=== PATIENT | female | born 1965 | race Caucasian/White ===

== ENCOUNTER → 2017-11-08 | Outpatient (CLI) | payer OTHER ==
--- NOTE | 2017-11-08 08:20 | US ---
EXAMINATION TYPE: US abdomen complete DATE OF EXAM: 11/08/2017 COMPARISON: NONE CLINICAL HISTORY: R10.12 left upper quadrant pain. Left flank pain, back pain and N/V x 1 month EXAM MEASUREMENTS: Liver Length: 15.7 cm Gallbladder Wall: 0.2 cm CBD: 0.3 cm Spleen: 9.7 cm Right Kidney: 11.8 x 4.6 x 5.3 cm Left Kidney: 10.3 x 4.9 x 5.4 cm Pancreas: visualized portions wnl, limited by overlying midline bowel gas Liver: 1.6 x 1.4cm hypoechoic area adjacent to gallbladder Gallbladder: wnl Evidence for sonographic Bradshaw's sign: no CBD: visualized portions wnl, limited by overlying bowel gas Spleen: wnl Right Kidney: 2.8 x 1.7 x 2.6cm isoechoic area mid pole, possible prominent column of John Left Kidney: 1.9 x 1.5 x 1.5cm isoechoic area mid pole, possible prominent column of John Upper IVC: wnl Abd Aorta: visualized portions wnl, limited by overlying midline bowel gas The visualized liver is heterogeneously hyperechoic likely reflecting fatty infiltration. Evaluation for focal masses is suboptimal due to the heterogeneity. Some focal fatty sparing near gallbladder is felt present. The intrahepatic portion of the IVC and proximal abdominal aorta are within normal li mits. There is no evidence of cholelithiasis. Common bile duct is unremarkable. The visualized por tions of the pancreas are homogenous. The spleen is unremarkable. Kidneys are symmetric and free of hydronephrosis. Technologist taylor prominent area isoechoic to cortex mid pole level in both kidneys felt to reflect lobulated cortical tissue. No obvious mass is present. IMPRESSION: Suboptimal study as detailed above, no suspicious acute finding is seen to account for pa tient's symptoms on images saved. Fatty infiltration of liver is noted.
== END | disposition home or self-care (01) ==
LOC: RADUSWWP 06:51
PROVIDERS: ATTEND Internal Medicine
DX: R10.12 Left upper quadrant pain (principal); Z88.8 Allergy status to other drugs, medicaments and biological substances
CPT/HCPCS: 76700

== ENCOUNTER → 2020-12-20 | Outpatient (CLI) | payer BC ==
[2020-12-20 13:47] VITALS: BP 132/71; PULSE 75; RESP 18; TEMP 98.6
--- NOTE | 2020-12-20 14:58 | P.HPOB ---
History of Present Illness H&P Date: 12/20/20 Chief Complaint: The patient is here for her routine gynecologic exam. This is a 55-year-old 014 with an LMP of 2015. The patient is here to establish with this office. The patient is without gynecologic complaints and denies any postmenopausal bleeding. It has been about 8 years since her last pelvic exam. Review of Systems The patient has gained 10 pounds over the last year. She states she lost about 40 pounds after she was diagnosed with diabetes about 4 years ago. She is now about at her original weight. She denies respiratory, cardiac, or G.I. problems. Past Medical History Past Medical History: Diabetes Mellitus, Liver Disease, Osteoarthritis (OA) Additional Past Medical History / Comment(s): Type 2 diabetes. Fatty liver. 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 History of Any Multi-Drug Resistant Organisms: None Reported Past Surgical History: Section, Tubal Ligation Additional Past Surgical History / Comment(s): D&C(molar ). One section followed by 3 vaginal deliveries. Past Psychological History: No Psychological Hx Reported Smoking Status: Current every day smoker (Half a pack per day.) Past Alcohol Use History: Occasional (1 about every 2 months) Past Drug Use History: Marijuana Additional Drug Use History / Comment(s): Marijuana use in the past. She denies recent use. Additional History: She has been since 1985 and is not sexually active. She does not work outside of the home. - Past Family History Sister(s) Family Medical History: Diabetes Mellitus Additional Family Medical History / Comment(s): Type 1 diabetes. Mother Family Medical History: Asthma, Osteoarthritis (OA) Father Family Medical History: Unable to Obtain Additional Family Medical History / Comment(s): Paternal grandmother had breast cancer. Medications and Allergies Home Medications Medication Instructions Recorded Confirmed Type Cyanocobalamin (Vitamin B-12) 1,000 mcg PO DAILY 12/20/20 12/20/20 History [Vitamin B-12] Glimepiride [Amaryl] 2 mg PO DAILY 12/20/20 12/20/20 History Melatonin 3 mg PO HS 12/20/20 12/20/20 History Meloxicam, Submicronized 5 mg PO DAILY 12/20/20 12/20/20 History [Meloxicam] Multivitamin [Multivitamins Adult 1 each PO DAILY 12/20/20 12/20/20 History Gummies] Allergies Allergy/AdvReac Type Severity Reaction Status Date / Time povidone-iodine AdvReac Swelling Unverified 12/20/20 13:42 [From Betadine] soap [From Betadine] AdvReac Swelling Unverified 12/20/20 13:42 Exam Vital Signs Temp Pulse Resp BP Pulse Ox 12/20/20 13:42 98.6 F 75 18 132/71 98 Intake and Output 12/19/20 12/20/20 12/20/20 22:59 06:59 14:59 Other: Weight 73.482 kg Height 5 feet 6 inches, weight 162 pounds, BMI 26.1. This is a well-developed well-nourished white female who is alert and oriented times 3 in no acute distress. HEENT: Within normal limits. NECK: Supple without mass or thyromegaly. CHEST AND LUNGS: Clear to auscultation. HEART: Regular rate and rhythm. BREASTS: Are without mass or discharge. She is quite ticklish upon doing the breast and axillary exams. AXILLARY EXAM: Negative for adenopathy. BACK: Negative for CVA tenderness. ABDOMEN: Soft, nontender, without palpable masses. PELVIC EXAM: Normal external genitalia with mild atrophy. Cervix and vagina appear normal with mild atrophy. There is no unusual discharge. There is no evidence of prolapse. The uterus is midposition, nongravid size and nontender. There are no palpable adnexal masses or tenderness. RECTAL EXAM: Rectovaginal exam is negative for mass or tenderness and is negative for occult blood. EXTREMITIES: Nontender. IMPRESSION: 1. 55-year-old menopausal female with normal gynecologic exam. PLAN: 1. Pap smear cotest was performed. 2. Self breast awareness was discussed with the patient. 3. Screening mammogram was recommended. Her last one was about in 2010. She states she is not interested in having screening mammography done at this time. I have stressed the importance of screening for breast cancer on a regular basis. I have recommended yearly screening mammogram. She understands that mammography can detect some breast cancers that are not clinically detectable on exam alone. The order slip was given to the patient for screening mammography and she will consider this. 4. Osteoporosis prevention was discussed. I have stressed the importance of adequate calcium, vitamin D and regular exercise. Recommended amounts of calcium and vitamin D were also discussed. 5. Colorectal cancer screening was discussed with the patient. We've discussed options such as colonoscopy as well as Cologuard testing. She would like to talk with her primary care physician regarding Cologuard testing. 6. She was advised to return in one year for her annual well woman exam.
== END | disposition home or self-care (01) ==
LOC: WWCWWP 12:51
PROVIDERS: ATTEND Obstetrics & Gynecology
DX: Z01.419 Encounter for gynecological examination (general) (routine) without abnormal findings (principal); E11.9 Type 2 diabetes mellitus without complications; M19.90 Unspecified osteoarthritis, unspecified site; F17.210 Nicotine dependence, cigarettes, uncomplicated; Z79.84 Long term (current) use of oral hypoglycemic drugs; Z88.8 Allergy status to other drugs, medicaments and biological substances

== ENCOUNTER 2022-06-13 14:32 | Emergency (ER) | payer BC ==
[2022-06-13 14:37] VITALS: PULSE 93; RESP 20; TEMP 97.4
[2022-06-13] MEDS ORDERED: MORPHINE SULFATE 4 MG/ML SYRINGE IVP STA (15:43)
[2022-06-13] MEDS ORDERED: ONDANSETRON 4 MG/2 ML VIAL IVP STA (15:43)
[2022-06-13] MEDS ORDERED: PROPARACAINE 0.5% OPHTH DROPS 15 ML BTL RIGHT EYE STA (15:51)
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
== END 2022-06-13 16:43 | disposition home or self-care (01) ==
LOC: EC 14:32 → SUPCPDRO 14:32 → EC 16:43
DX: T26.11XA Burn of cornea and conjunctival sac, right eye, initial encounter (principal); E11.9 Type 2 diabetes mellitus without complications; F17.200 Nicotine dependence, unspecified, uncomplicated; F12.90 Cannabis use, unspecified, uncomplicated; Z91.041 Radiographic dye allergy status; Z91.048 Other nonmedicinal substance allergy status; Z79.84 Long term (current) use of oral hypoglycemic drugs
CPT/HCPCS: 99283; 96374; 96375; J2270; J2405